=== PATIENT | male | born 1990 | race Caucasian/White ===

== ENCOUNTER 2019-01-10 09:51 | Emergency (ER) | payer OTHER ==
[2019-01-10] MEDS: HYDROCODONE/APAP (10/325) TAB PO (11:25)
== END 2019-01-10 12:15 | disposition home or self-care (01) ==
LOC: FTE 09:51
DX: M25.562 Pain in left knee (principal); F17.210 Nicotine dependence, cigarettes, uncomplicated
CPT/HCPCS: 73562; 99283-25